=== PATIENT | female | born 1995 | race Caucasian/White ===

== ENCOUNTER → 2020-01-02 10:25 | Outpatient (CLI) | payer OTHER, SELFPAY | PROVIDERS: Visit Provider Family Medicine | DX: Z03.818 Encounter for observation for suspected exposure to other biological agents ruled out (principal); Z11.59 Encounter for screening for other viral diseases | CPT/HCPCS: 36415; 86769 ==

== ENCOUNTER → 2020-05-15 16:04 | Outpatient (CLI) | payer OTHER, SELFPAY ==
[2020-05-15 16:51] LABS: Basophils % 0.5 % (0.1-2.0); Eosinophils % 0.6 % (0.1-12.0); Hematocrit 42.9 % (37.0-47.0); Hemoglobin 14.4 g/dL (12.2-16.2); Lymphocytes # 2.5 K/mm3 (0.7-4.5); Mean Corpuscular HGB Conc 33.5 g/dL (31.8-35.4); Mean Corpuscular Hemoglobin 29.5 pg (27.0-31.2); Mean Platelet Volume 7.8 fl (7.4-10.4); Monocytes # 0.3 K/mm3 (0.1-1.0); Monocytes % 4.1 % (1.7-9.3); Neutrophils % 58.7 % (37.0-80.0); Platelet Count 276 K/mm3 (142-424); Red Blood Count 4.87 M/mm3 (4.20-5.40); Red Cell Distribution Width 11.5 % (11.5-17.5); White Blood Count 6.9 K/mm3 (4.8-10.8)
[2020-05-15 17:58] LABS: Strep Scrn Group A (Rapid) Negative (Negative)
[2020-05-15 18:02] LABS: Monoscreen (Rapid) Negative (Negative)
== END ==
PROVIDERS: PCP Family Medicine; Visit Provider Family Medicine
DX: Z03.818 Encounter for observation for suspected exposure to other biological agents ruled out (principal)
CPT/HCPCS: 36415; 85025; 86318; 87275; 87276; 87430; U0003

== ENCOUNTER → 2021-01-29 10:33 | Outpatient (CLI) | payer BC, SELFPAY ==
--- NOTE | 2021-01-29 10:46 | US_ITS ---
PROCEDURE: US TRANSVAGINAL CLINICAL INDICATION: PELVIC PAIN COMPARISON: No exams were available for comparison FINDINGS: UTERUS: x 4cmx 3cm with a combined endometrial thickness of 5.1mm LEFT OVARY: 3qgh1nhe9.6cm with a volume of 6.4ml. RIGHT OVARY: 3cmx 6jmg2pr with a volume of 10.2ml. Small amount of fluid in the cervix. No free fluid in the posterior cul-de-sac or pelvis. Normal vascular flow to both ovaries. No discrete cyst or solid mass in either ovary. A few small follicular type cysts on both ovaries. IMPRESSION: Small amount of fluid in the cervix. Otherwise unremarkable transvaginal ultrasound. Dictated by: Dale Scott MD 01/29/2021 16:09 Dale Scott MD in OV 01/29/2021 16:09
== END ==
PROVIDERS: PCP Physician Assistant; Visit Provider Physician Assistant
DX: R10.2 Pelvic and perineal pain (principal)
CPT/HCPCS: 76830

== ENCOUNTER → 2021-01-30 17:00 | Outpatient (CLI) | payer BC, SELFPAY ==
[2021-01-30 18:24] LABS: Basophils % 0.5 % (0.1-2.0); Eosinophils # 0.1 K/mm3 (0.0-0.4); Eosinophils % 1.4 % (0.1-12.0); Hematocrit 38.9 % (37.0-47.0); Hemoglobin 13.8 g/dL (12.2-16.2); Lymphocytes # 2.4 K/mm3 (0.7-4.5); Mean Corpuscular HGB Conc 35.6 g/dL (31.8-35.4); Mean Corpuscular Hemoglobin 29.9 pg (27.0-31.2); Mean Platelet Volume 7.8 fl (7.4-10.4); Monocytes # 0.3 K/mm3 (0.1-1.0); Monocytes % 4.7 % (1.7-9.3); Neutrophils # 4.3 K/mm3 (1.8-7.8); Neutrophils % 60.5 % (37.0-80.0); Platelet Count 269 K/mm3 (142-424); Red Blood Count 4.63 M/mm3 (4.20-5.40); Red Cell Distribution Width 12.6 % (11.5-17.5); White Blood Count 7.2 K/mm3 (4.8-10.8)
[2021-01-30 18:51] LABS: 25-OH Vitamin D, Total 61.8 ng/mL (30-100)
[2021-01-30 19:10] LABS: Erythrocyte Sedimentation Rate 14 mm/hr (0-20)
[2021-01-30 19:38] LABS: Chloride 103 mmol/L (98-107); Potassium 4.8 mmoL/L (3.5-5.1); Sodium 141 mmol/L (136-145)
[2021-01-30 19:40] LABS: Blood Urea Nitrogen 11 mg/dl (7-17); Estimated Glomerular Filt Rate 77 ml/min (>60); GFR (African American) 93 ML/MIN (>60)
[2021-01-30 19:41] LABS: Alanine Aminotransferase 18 U/L (12-78); Albumin Level 4.6 g/dl (3.5-5.0); Albumin/Globulin Ratio 1.6 (1.1-1.8); Alkaline Phosphatase 62 U/L (38-126); Anion Gap 14.8 mEq/L (5-15); Aspartate Amino Transferase 31 U/L (14-36); Bilirubin,Total 0.4 mg/dl (0.2-1.3); Carbon Dioxide 28 mmol/L (22.0-30.0); Globulin 2.8 g/dL (1.3-3.2); Total Protein,Serum 7.4 g/dl (6.3-8.2)
[2021-01-30 19:42] LABS: Calcium 9.5 mg/dl (8.4-10.2); Glucose 97 mg/dl (74-100)
[2021-01-30 19:47] LABS: C-Reactive Protein 2.8 mg/L (0-4)
[2021-01-30 20:12] LABS: Thyroid Stimulating Hormone 1.12 uIU/mL (0.465-4.68)
[2021-01-30 21:24] LABS: Vitamin B12 347 pg/mL (239-931)
[2021-02-01 07:09] LABS: RA Latex Turbid. <10.0 IU/mL (0.0-13.9)
[2021-02-04 10:09] LABS: Antinuclear Antibodies, IFA Positive (.)
== END ==
PROVIDERS: Visit Provider Physician Assistant
DX: M25.50 Pain in unspecified joint (principal); R53.83 Other fatigue; L65.9 Nonscarring hair loss, unspecified
CPT/HCPCS: 36415; 80053; 82306; 82607; 84443; 84550; 85025; 85651; 86038; 86140; 86431

== ENCOUNTER → 2021-03-29 13:13 | Outpatient (CLI) | payer BC, SELFPAY ==
[2021-03-29 14:09] LABS: Strep Scrn Group A (Rapid) Negative (Negative)
[2021-03-29 14:19] LABS: Basophils # 0.1 K/mm3 (0-0.2); Basophils % 0.8 % (0.1-2.0); Eosinophils # 0.1 K/mm3 (0.0-0.4); Eosinophils % 0.6 % (0.1-12.0); Hematocrit 39.5 % (37.0-47.0); Hemoglobin 13.7 g/dL (12.2-16.2); Lymphocytes # 2.3 K/mm3 (0.7-4.5); Lymphocytes % 29.1 % (10-50); Mean Corpuscular HGB Conc 34.7 g/dL (31.8-35.4); Mean Corpuscular Hemoglobin 29.7 pg (27.0-31.2); Mean Corpuscular Volume 85.7 fl (81-99); Mean Platelet Volume 7.9 fl (7.4-10.4); Monocytes # 0.3 K/mm3 (0.1-1.0); Monocytes % 3.3 % (1.7-9.3); Neutrophils # 5.1 K/mm3 (1.8-7.8); Neutrophils % 66.2 % (37.0-80.0); Platelet Count 297 K/mm3 (142-424); Red Blood Count 4.61 M/mm3 (4.20-5.40); Red Cell Distribution Width 12.4 % (11.5-17.5); White Blood Count 7.8 K/mm3 (4.8-10.8)
== END ==
PROVIDERS: PCP Physician Assistant; Visit Provider Physician Assistant
DX: Z20.822 Contact with and (suspected) exposure to COVID-19 (principal); J02.9 Acute pharyngitis, unspecified
CPT/HCPCS: 36415; 85025; 87430; U0003

== ENCOUNTER → 2021-05-30 13:12 | Outpatient (CLI) | payer BC, SELFPAY | PROVIDERS: PCP Physician Assistant; Visit Provider Nurse Practitioner | DX: Z20.822 Contact with and (suspected) exposure to COVID-19 (principal) | CPT/HCPCS: C9803; U0003; U0005 ==

== ENCOUNTER → 2021-08-07 15:00 | Outpatient (CLI) | payer BC, SELFPAY ==
[2021-08-07 17:16] LABS: Basophils # 0.1 K/mm3 (0-0.2); Basophils % 1.6 % (0.1-2.0); Eosinophils # 0.1 K/mm3 (0.0-0.4); Eosinophils % 0.9 % (0.1-12.0); Hematocrit 43.4 % (37.0-47.0); Hemoglobin 14.2 g/dL (12.2-16.2); Lymphocytes # 1.7 K/mm3 (0.7-4.5); Lymphocytes % 28.4 % (10-50); Mean Corpuscular HGB Conc 32.6 g/dL (31.8-35.4); Mean Corpuscular Hemoglobin 29.7 pg (27.0-31.2); Mean Platelet Volume 9.7 fl (7.4-10.4); Monocytes # 0.3 K/mm3 (0.1-1.0); Monocytes % 4.3 % (1.7-9.3); Neutrophils # 3.9 K/mm3 (1.8-7.8); Neutrophils % 64.8 % (37.0-80.0); Platelet Count 297 K/mm3 (142-424); Red Blood Count 4.78 M/mm3 (4.20-5.40); Red Cell Distribution Width 12.4 % (11.5-17.5); White Blood Count 5.9 K/mm3 (4.8-10.8)
[2021-08-09 08:29] LABS: Antistreptolysin O Ab 50.2 IU/mL (0.0-200.0)
== END ==
PROVIDERS: PCP Physician Assistant; Visit Provider Family Medicine
DX: Z20.822 Contact with and (suspected) exposure to COVID-19 (principal)
CPT/HCPCS: 36415; 85025; 86060

== ENCOUNTER → 2021-08-07 19:15 | Outpatient (CLI) | payer BC, SELFPAY | PROVIDERS: Visit Provider Nurse Practitioner Family | DX: Z20.822 Contact with and (suspected) exposure to COVID-19 (principal); J02.9 Acute pharyngitis, unspecified | CPT/HCPCS: C9803; U0003; U0005 ==

== ENCOUNTER → 2022-05-15 14:08 | Outpatient (CLI) | payer OTHER, SELFPAY ==
[2022-05-15 14:39] LABS: Strep Scrn Group A (Rapid) Negative (Negative)
[2022-05-15 14:55] LABS: Basophils % 0.3 % (0.1-2.0); Eosinophils # 0.1 K/mm3 (0.0-0.4); Hematocrit 44.1 % (37.0-47.0); Hemoglobin 13.9 g/dL (12.2-16.2); Lymphocytes # 2.1 K/mm3 (0.7-4.5); Lymphocytes % 35.1 % (10-50); Mean Corpuscular HGB Conc 31.6 g/dL (31.8-35.4); Mean Corpuscular Hemoglobin 28.5 pg (27.0-31.2); Mean Corpuscular Volume 90.1 fl (81-99); Mean Platelet Volume 7.7 fl (7.4-10.4); Monocytes # 0.3 K/mm3 (0.1-1.0); Neutrophils # 3.5 K/mm3 (1.8-7.8); Neutrophils % 58.6 % (37.0-80.0); Platelet Count 301 K/mm3 (142-424); Red Blood Count 4.89 M/mm3 (4.20-5.40); Red Cell Distribution Width 11.7 % (11.5-17.5)
== END ==
PROVIDERS: PCP Physician Assistant; Visit Provider Physician Assistant
DX: J02.9 Acute pharyngitis, unspecified (principal)
CPT/HCPCS: 36415; 85025; 87430

== ENCOUNTER → 2022-06-20 17:46 | Outpatient (CLI) | payer OTHER, SELFPAY ==
[2022-06-20 18:58] LABS: Basophils # 0.1 K/mm3 (0-0.2); Basophils % 1.5 % (0.1-2.0); Eosinophils # 0.1 K/mm3 (0.0-0.4); Eosinophils % 1.4 % (0.1-12.0); Hematocrit 43.1 % (37.0-47.0); Hemoglobin 14.4 g/dL (12.2-16.2); Lymphocytes # 2.3 K/mm3 (0.7-4.5); Mean Corpuscular HGB Conc 33.5 g/dL (31.8-35.4); Mean Corpuscular Hemoglobin 29.9 pg (27.0-31.2); Mean Corpuscular Volume 89.4 fl (81-99); Mean Platelet Volume 8.1 fl (7.4-10.4); Monocytes # 0.3 K/mm3 (0.1-1.0); Monocytes % 5.5 % (1.7-9.3); Neutrophils # 2.4 K/mm3 (1.8-7.8); Neutrophils % 46.6 % (37.0-80.0); Platelet Count 307 K/mm3 (142-424); Red Blood Count 4.82 M/mm3 (4.20-5.40); Red Cell Distribution Width 12.6 % (11.5-17.5); White Blood Count 5.2 K/mm3 (4.8-10.8)
[2022-06-20 19:10] LABS: Strep Scrn Group A (Rapid) Negative (Negative)
== END ==
PROVIDERS: PCP Physician Assistant; Visit Provider Family Medicine
DX: Z20.822 Contact with and (suspected) exposure to COVID-19 (principal)
CPT/HCPCS: 36415; 85025; 87275; 87276; 87430

== ENCOUNTER → 2022-08-18 13:21 | Outpatient (CLI) | payer OTHER, SELFPAY ==
--- NOTE | 2022-08-18 13:35 | ECG_ITS ---
APPROVED REPORT Exam: Resting ECG HR:78 bpm ECG Measurements Heart Rate 78 AXES HI 147 P 70 QRSd 78 QRS 82 QT 349 T 69 QTc 382 Conclusion SINUS RHYTHM WITH SINUS ARRHYTHMIA POSSIBLE LEFT ATRIAL ENLARGEMENT [-0.1mV P-WAVE IN V1/V2] BORDERLINE ECG UNCONFIRMED REPORT Electronically signed by : Alex Lomas MD 08/19/2022 16:58:36
[2022-08-18 14:53] LABS: Benzodiazepines Screen,Urine Negative ng/ml (<200)
[2022-08-18 14:54] LABS: Amphetamine/Metha Screen,Urine Negative ng/ml (<1000); Barbiturates Screen,Urine Negative ng/ml (<200)
[2022-08-18 14:55] LABS: Cannabinoid Screen,Urine Negative ng/ml (<50); Cocaine Screen,Urine Negative ng/ml (<300)
[2022-08-18 14:56] LABS: Methadone Screen,Urine Negative ng/ml (<300)
[2022-08-18 14:57] LABS: Opiate Screen,Urine Negative ng/ml (<300); Phencyclidine Screen,Urine Negative ng/ml (<25)
== END ==
PROVIDERS: PCP Physician Assistant; Visit Provider Nurse Practitioner Psychiatric/Mental Health
DX: F90.2 Attention-deficit hyperactivity disorder, combined type (principal)
CPT/HCPCS: 36415; 80305; 93005

== ENCOUNTER 2022-09-14 17:09 | Emergency (ER) | payer OTHER, SELFPAY ==
[2022-09-14 17:15] VITALS: BP 123/69; PULSE 76; RESP 20; TEMP 37.1; O2SAT 97; BMI 26.5
--- NOTE | 2022-09-14 17:21 | EXP.UTC ---
Discharge Plan Disposition Patient Disposition: Home, Self-Care Condition: Good Prescriptions Prescriptions: New amoxicillin [amoxicillin] 500 mg tablet 500 mg PO TID 10 Days Qty: 30 0RF methylprednisolone 4 mg Tablets,Dose Pack 4 mg PO DIRECTED Qty: 21 0RF No Action hydroxychloroquine 200 mg tablet 200 mg PO DAILY Label Comments: TAKE 1 TABLET BY MOUTH EVERY DAY sertraline 50 mg tablet 50 mg PO DAILY bupropion HCl 150 mg tablet extended release 24 hr 150 mg PO DAILY Label Comments: TAKE 1 TABLET BY MOUTH EVERY DAY Referrals Follow up/Referrals: Adia Carlisle PA [Primary Care Provider] - See instructions Activity Restrictions/Add. Instructions Additional Instructions/Restrictions: Drink plenty of fluids. Take tylenol or ibuprofen for pain or fever. Take the medications as directed. Follow up with your regular doctor. GO TO THE ER FOR ANY WORSENING SYMPTOMS Clinical Impressions Clinical Impression: Pharyngitis Stand Alone Forms Stand Alone Forms: Work/School Release Instructions Patient Instructions: Strep Throat, DI for Strep Throat Discharge ED Provider: Dale Marie [facility] General Stated complaint: Possible strep throat, would like to be tested Time Seen by Provider: 09/14/22 17:21 History of Present Illness Provider Complaint: She states that she has had a sore throat for the past 3 days. She has had chills but no documented fever. She does have a history of Sjogren's Syndrome. Related Data Home Medications Medication Instructions Recorded Confirmed bupropion HCl 150 mg 24 hr tablet, 150 mg PO DAILY Depression 09/14/22 09/14/22 extended release hydroxychloroquine 200 mg tablet 200 mg PO DAILY sjogrens 09/14/22 09/14/22 sertraline 50 mg tablet 50 mg PO DAILY Depression 09/14/22 09/14/22 Previous Rx's Medication Instructions Recorded amoxicillin 500 mg tablet 500 mg PO TID 10 days #30 tabs 09/14/22 methylprednisolone 4 mg tablets in 4 mg PO DIRECTED #21 tabs 09/14/22 a dose pack Allergies Allergy/AdvReac Type Severity Reaction Status Date / Time No Known Allergies Allergy Verified 09/14/22 17:27 [facility] Disclaimer: The information contained in this section may have been updated after the patient was seen, as this information can be updated by other users. Social History Smoking Status: Never smoker alcohol intake: current substance use type: denies use current occupational status: employed Travel in the last 8 weeks: None household members: family housing: house ROS Obtained: Yes All systems reviewed & no additional complaints except as documented Constitutional Constitutional: Reports chills and Reports fever(s) Eyes Eyes: Denies eye discharge ENT Ears, Nose, Mouth, and Throat: Reports as per HPI Cardiovascular Cardiovascular: Denies chest pain Respiratory Respiratory: Denies chest congestion and Reports cough Gastrointestinal Gastrointestingal: Reports nausea; Denies abdominal pain, constipation, cramping, diarrhea or vomiting Musculoskeletal Musculoskeletal: Denies arthralgias Integumentary/Breasts Skin/Breast: Denies rash Neurologic Neurologic: Denies paresthesias Physical Exam General General appearance: alert and in no apparent distress Head Head exam: atraumatic, normocephalic and normal inspection Eye Eye exam: Present normal appearance, PERRL and EOMI ENT ENT exam: Present mucous membranes moist and normal external ear exam Expanded ENT Exam TM/Canal exam: Bilateral TM: erythema and bulging Nose exam: Absent sinus tenderness Mouth exam: Present normal external inspection; Absent drooling Teeth exam: Present normal inspection Throat exam: Present tonsillar erythema, tonsillomegaly and tonsillar exudate Neck Neck exam: Present normal inspection, full ROM and trachea midline; Absent tenderness, meningismus or lym
[2022-09-14 17:32] LABS: UTC Strep Screen (Rapid) Negative (Negative)
[2022-09-14 18:11] VITALS: BP 123/69; PULSE 76; RESP 20; TEMP 37.1; O2SAT 97
== END 2022-09-14 18:10 | disposition home or self-care (01) ==
PROVIDERS: Emergency Provider Nurse Practitioner Family; PCP Physician Assistant
DX: J02.9 Acute pharyngitis, unspecified (principal)
CPT/HCPCS: 87880; 99212; G0463

== ENCOUNTER → 2022-12-18 15:26 | Outpatient (CLI) | payer OTHER, SELFPAY | PROVIDERS: PCP Physician Assistant; Visit Provider Physician Assistant | DX: R00.2 Palpitations (principal) | CPT/HCPCS: 93225; 93226 ==

== ENCOUNTER 2023-01-19 09:49 | Emergency (ER) | payer OTHER, SELFPAY ==
[2023-01-19 09:55] VITALS: BP 121/76; PULSE 76; RESP 18; TEMP 37; O2SAT 100; BMI 30.1
--- NOTE | 2023-01-19 10:21 | EXP.UTC ---
Discharge Plan Disposition Patient Disposition: Home, Self-Care Condition: Good Prescriptions Prescriptions: New valacyclovir 1 gram tablet 2,000 mg PO Q12H 1 Days Qty: 4 0RF No Action hydroxychloroquine 200 mg tablet 200 mg PO DAILY Label Comments: TAKE 1 TABLET BY MOUTH EVERY DAY sertraline 50 mg tablet 50 mg PO DAILY Referrals Follow up/Referrals: Adia Carlisle PA [Primary Care Provider] - See instructions Activity Restrictions/Add. Instructions Additional Instructions/Restrictions: Take medication as prescribed Use over the counter Abreva it may help to clear the cold sore Return if needed Follow up with yout Family Doctor if you continue to have outbreaks Clinical Impressions Clinical Impression: Fever blister Instructions Patient Instructions: Cold Sores, DI for Cold Sores, Valacyclovir Discharge ED Provider: Laura Sommer [facility] General Stated complaint: Possible fever blisters Mode of Arrival: Ambulatory Source of Information: Patient Limitations: No Limitations Time Seen by Provider: 01/19/23 10:21 Description of Symptoms (Recalled from Triage Doc. by RN): PATIENT C/O FEVER BLISTERS TO MOUTH SINCE YESTERDAY HEENT Symptoms (Recalled from RN notes): Yes Resp Symptoms (Recalled from RN notes): No Skin Symptoms (Recalled from RN notes): No MS Symptoms (Recalled from RN notes): No Functional Status (Recalled from RN notes): WNL History of Present Illness Provider Complaint: Patient states that she has been having issues with breakout of fever blisters States that a couple weeks ago she had two and then yesterday she had seven small blisters pop up on her bottom lip that is causing pain and swelling States before she done this and had to take oral medication for it and worried they are going to continue to spread so she came in to get them checked Related Data Home Medications Medication Instructions Recorded Confirmed hydroxychloroquine 200 mg tablet 200 mg PO DAILY Sjogrens 09/14/22 01/19/23 sertraline 50 mg tablet 50 mg PO DAILY Depression 09/14/22 01/19/23 Previous Rx's Medication Instructions Recorded valacyclovir 1 gram tablet 2,000 mg PO Q12H 1 day #4 tabs 01/19/23 Allergies Allergy/AdvReac Type Severity Reaction Status Date / Time No Known Allergies Allergy Verified 09/14/22 17:27 Worker's Comp Is this a Worker's Comp case?: No PFSH PFSH Disclaimer: The information contained in this section may have been updated after the patient was seen, as this information can be updated by other users. Social History Smoking Status: Never smoker alcohol intake: current substance use type: denies use current occupational status: employed Travel in the last 8 weeks: None household members: family housing: house ROS Obtained: Yes All systems reviewed & no additional complaints except as documented and Yes Systems reviewed as appropriate & no additional complaints except as documented Constitutional Constitutional: Reports system reviewed and no additional complaints, except as documented and Reports as per HPI Eyes Eyes: Reports system reviewed and no additional complaints, except as documented and Reports as per HPI ENT Ears, Nose, Mouth, and Throat: Reports system reviewed and no additional complaints, except as documented and Reports as per HPI Comments: multiple cold sores on bottom lip causing pain and swelling Cardiovascular Cardiovascular: Reports system reviewed and no additional complaints, except as documented and Reports as per HPI Respiratory Respiratory: Reports system reviewed and no additional complaints, except as documented and Reports as per HPI Gastrointestinal Gastrointestingal: Reports system reviewed and no additional complaints, except as documented and as per HPI Physical Exam General General appearance: alert and in no apparent distress Expanded ENT Exam Nose/M
[2023-01-19 10:24] VITALS: BP 121/76; PULSE 76; RESP 18; TEMP 37; O2SAT 100
== END 2023-01-19 10:26 | disposition home or self-care (01) ==
PROVIDERS: Emergency Provider Nurse Practitioner; PCP Physician Assistant
DX: B00.1 Herpesviral vesicular dermatitis (principal)
CPT/HCPCS: 99212; 99214; G0463

== ENCOUNTER → 2023-02-19 15:54 | Outpatient (CLI) | payer OTHER, SELFPAY ==
[2023-02-19 16:33] LABS: Basophils % 0.3 % (0.1-2.0); Eosinophils # 0.1 K/mm3 (0.0-0.4); Eosinophils % 1.5 % (0.1-12.0); Hematocrit 42.5 % (37.0-47.0); Lymphocytes # 2.1 K/mm3 (0.7-4.5); Lymphocytes % 34.4 % (10-50); Mean Corpuscular Hemoglobin 28.7 pg (27.0-31.2); Mean Corpuscular Volume 86.9 fl (81-99); Mean Platelet Volume 8.1 fl (7.4-10.4); Monocytes # 0.2 K/mm3 (0.1-1.0); Monocytes % 3.5 % (1.7-9.3); Neutrophils # 3.7 K/mm3 (1.8-7.8); Neutrophils % 60.3 % (37.0-80.0); Platelet Count 304 K/mm3 (142-424); Red Blood Count 4.89 M/mm3 (4.20-5.40); Red Cell Distribution Width 12.4 % (11.5-17.5); White Blood Count 6.1 K/mm3 (4.8-10.8)
[2023-02-19 16:59] LABS: Alanine Aminotransferase 20 U/L (12-78); Albumin Level 4.2 g/dl (3.5-5.0); Alkaline Phosphatase 64 U/L (38-126); Anion Gap 11.2 mEq/L (5-15); Aspartate Amino Transferase 30 U/L (14-36); Bilirubin,Indirect 0.3 mg/dL (0.0-0.9); Bilirubin,Total 0.3 mg/dl (0.2-1.3); Bilirubin,Unconjugated 0.5 mg/dL (0.0-1.1); Blood Urea Nitrogen 8 mg/dl (7-17); Calcium 9.1 mg/dl (8.4-10.2); Carbon Dioxide 26 mmol/L (22.0-30.0); Chloride 106 mmol/L (98-107); Chol/HDL Ratio 2.7 (1-3.5); Cholesterol 214 mg/dl (140-200); Estimated Glomerular Filt Rate 87 ml/min (>60); GFR (African American) 105 ML/MIN (>60); Glucose 81 mg/dl (74-100); HDL Cholesterol 78 mg/dl (40-60); Potassium 4.2 mmoL/L (3.5-5.1); Sodium 139 mmol/L (136-145); Total Protein,Serum 7.2 g/dl (6.3-8.2); Triglycerides 173 mg/dl (30-150); VLDL Cholesterol 35 mg/dL (0-40)
[2023-02-19 17:10] LABS: Direct LDL Cholesterol 117.14 mg/dL (100-129)
[2023-02-19 17:29] LABS: Thyroid Stimulating Hormone 1.27 uIU/mL (0.465-4.68)
== END ==
PROVIDERS: PCP Physician Assistant; Visit Provider Nurse Practitioner
DX: R06.00 Dyspnea, unspecified (principal); R00.0 Tachycardia, unspecified; R55 Syncope and collapse; G90.A Postural orthostatic tachycardia syndrome [POTS]; I11.9 Hypertensive heart disease without heart failure; I63.9 Cerebral infarction, unspecified; E11.9 Type 2 diabetes mellitus without complications
CPT/HCPCS: 36415; 80048; 80061; 80076; 84439; 84443; 85025; 93270

== ENCOUNTER → 2023-02-25 12:13 | Outpatient (CLI) | payer OTHER, SELFPAY ==
--- NOTE | 2023-02-25 12:17 | CT_ITS ---
FINAL REPORT CLINICAL HISTORY: syncope, tachycardia FINDINGS: Thin section axial CT images of the chest were obtained with contrast. 3D reformatted images were also obtained. This study was performed with techniques to keep radiation doses as low as reasonably achievable (ALARA). Individualized dose reduction techniques using automated exposure control or adjustment of mA and/or kV according to the patient's size were employed. There is no evidence of pulmonary embolism. There is no evidence of thoracic aortic aneurysm or dissection. There is no evidence of mediastinal or hilar mass or adenopathy. There is no evidence of pulmonary mass or nodule. No localized inflammatory process is seen within the lungs. There are several calcified granulomas. Limited images of the upper abdomen are unremarkable. IMPRESSION: No evidence of pulmonary embolism. No mass or localized inflammatory process. Reviewed, Interpreted and Dictated by Dontae Tomlin III, MD Transcribed by Idania Cruz Authenticated and [facility]
== END ==
PROVIDERS: PCP Physician Assistant; Visit Provider Nurse Practitioner
DX: R55 Syncope and collapse (principal); R00.0 Tachycardia, unspecified; G90.A Postural orthostatic tachycardia syndrome [POTS]
CPT/HCPCS: 71275; Q9967

== ENCOUNTER → 2023-03-17 15:04 | Outpatient (CLI) | payer OTHER, SELFPAY ==
--- NOTE | 2023-03-17 15:07 | CA_ITS ---
APPROVED REPORT EXAM: Comprehensive 2D, Doppler, and color-flow Echocardiogram Repairer [employer]: Marianna Li, RCS, RVS Ht: 5 ft 8 in Wt: 196lbs BSA: 2.03 HR: 70 bpm BP: 121/77 mmHg Rhythm: NSR Indications: POTS, Syncope, tachycardia 2D Dimensions Aortic Root 2.77 cm LA Volume 39.90 mL Left Atrium 2.70 cm LA Volume Index 19.20 mL/m2 (M/F) 16-34 LVOT 1.87 cm (M/F) 1.5-2.5 M-Mode Dimensions RVDd 2.75 cm (0.9-2.6) LA Diam 2.83 cm (1.9-4.0) LVDd 4.26 cm (3.5-5.7) Ao Diam 2.89 cm (2.0-3.7) LVDs 2.57 cm (3.5-5.7) IVSd 0.75 cm (0.6-1.1) PWd 0.69 cm (0.6-1.1) EF (Teich) 70.60% EPSs 0.31 cm FS 39.70% EDV (Teich) 81.30 mL ESV (Teich) 23.90 mL LV Diastology E Decel Time 170.00 (160-240 msec) E/A Ratio 1.71 MED E' 10.60 (< 7 cm/sec) MED A' 10.40 cm/s E'/MED E' Ratio 8.02 (>14) LAT E' 17.60 (<10 cm/sec) LAT A' 12.10 cm/s E/LAT E' Ratio 4.83 (>14) Aortic Valve LVOT Max 113.00 (70-110 cm/s) LVOT VTI 23.14 cm AoV Peak Kristofer. 129.00 (50-130 cm/s) AO Peak GR. 6.70 mmHg AO Mean GR. 3.30 (<5 mmHg) AO VTI 24.77 (18-25 cm) VALENCIA (VTI) 2.57 (2.5-4.5 cm2) Mitral Valve MV A Velocity 50.00 (40-130 cm/s) E/A Ratio 1.71 MV Decel. Time 170.00 (160-240 ms) Pulmonary Valve PV Peak Velocity 104.00 (50-150 cm/s) ME End VMAX 171.00 cm/s Tricuspid Valve TR P. Velocity 188.00 cm/s Left Ventricle The left ventricle is normal size. The left ventricular systolic function is normal. The left ventricular ejection fraction is within the normal range. There is normal left ventricular wall thickness. There is normal LV segmental wall motion. The left ventricular diastolic function is normal. LVEF is 60%. Right Ventricle The right ventricle is normal size. The right ventricular systolic function is normal. Atria The left atrium size is normal. The right atrium size is normal. There is no Doppler evidence of interatrial shunt. Aortic Valve The aortic valve is normal in structure. The aortic valve opens well. There is no aortic valvular stenosis. No aortic regurgitation is present. Mitral Valve The mitral valve is normal in structure. There is no mitral valve regurgitation noted. Tricuspid Valve The tricuspid valve leaflets are thin and pliable. Trace tricuspid regurgitation. RVSP is normal. Pulmonic Valve The pulmonary valve is normal in structure. Mild pulmonic regurgitation. Great Vessels The aortic root is normal in size. The visualized segment of the ascending aorta is normal in size. IVC is normal in size and collapses >50% with inspiration. Pericardium There is no pericardial effusion. Other Information Study Quality: Adequate Conclusion Ventricular systolic function. No significant valvulopathy. Electronically signed by : Ana Rosa Aviles, 03/17/2023 22:06:56
== END ==
PROVIDERS: PCP Physician Assistant; Visit Provider Nurse Practitioner
DX: R55 Syncope and collapse (principal); R00.0 Tachycardia, unspecified; G90.A Postural orthostatic tachycardia syndrome [POTS]
CPT/HCPCS: 93306

== ENCOUNTER 2023-04-02 10:55 | Emergency (ER) | payer OTHER, SELFPAY ==
[2023-04-02 10:55] VITALS: BP 123/75; PULSE 68; RESP 18; TEMP 37; O2SAT 97; BMI 28.7
--- NOTE | 2023-04-02 11:12 | EXP.UTC ---
Discharge Plan Disposition Patient Disposition: Home, Self-Care Condition: Good Prescriptions Prescriptions: New prednisone 10 mg tablet 10 mg PO BID 4 Days Qty: 8 0RF amoxicillin [amoxicillin] 875 mg tablet 875 mg PO Q12H Qty: 20 0RF ssdkfqwmtlaifmw-uirsjgtij-HD [Bromfed DM] 2-30-10 mg/5 mL Syrup 5 ml PO Q6H PRN (Reason: Cough) Qty: 240 0RF No Action etonogestrel-ethinyl estradiol 0.12-0.015 mg/24 hr ring vaginal bisoprolol fumarate 5 mg tablet 5 mg PO DAILY Qty: 30 2RF hydroxychloroquine 200 mg tablet 200 mg PO DAILY Patient Comments: TAKE 1 TABLET BY MOUTH EVERY DAY sertraline 50 mg tablet 50 mg PO DAILY Referrals Follow up/Referrals: Adia Carlisle PA [Primary Care Provider] - See instructions Activity Restrictions/Add. Instructions Additional Instructions/Restrictions: Drink plenty of fluids. Take tylenol or ibuprofen for pain or fever. Take the medications as directed. Follow up with your regular doctor. GO TO THE ER FOR ANY WORSENING SYMPTOMS Clinical Impressions Clinical Impression: Pharyngitis Instructions Patient Instructions: DI for Pharyngitis/Tonsillopharyngitis -- Adult Discharge ED Provider: Dale Marie [facility] General Stated complaint: sore throat, fever Mode of Arrival: Ambulatory Source of Information: Patient Limitations: No Limitations Time Seen by Provider: 04/02/23 11:12 Description of Symptoms (Recalled from Triage Doc. by RN): Patient states she has a sore throat and fever for two days. HEENT Symptoms (Recalled from RN notes): Yes Resp Symptoms (Recalled from RN notes): No Skin Symptoms (Recalled from RN notes): No MS Symptoms (Recalled from RN notes): No Functional Status (Recalled from RN notes): wnl History of Present Illness Provider Complaint: She states that she has had fever, malaise and sore throat for the past 3 days. She states that she gets strep throat frequently and she thinks that is what's going on now. She has a cough, but denies any chest congestion or shortness of breath. She denies any known exposure to covid-19. Related Data Home Medications Medication Instructions Recorded Confirmed hydroxychloroquine 200 mg tablet 200 mg PO DAILY Sjogrens 09/14/22 02/19/23 sertraline 50 mg tablet 50 mg PO DAILY Depression 09/14/22 02/19/23 etonogestrel 0.12 mg-ethinyl vag ring vaginal 02/19/23 02/19/23 estradiol 0.015 mg/24 hr vaginal ring Previous Rx's Medication Instructions Recorded bisoprolol fumarate 5 mg tablet 5 mg PO DAILY #30 tabs 02/19/23 amoxicillin 875 mg tablet 875 mg PO Q12H #20 tabs 04/02/23 ycfjdkrsdrepczr-eleipeebiexfulm-FP 5 ml PO Q6H PRN Cough #240 mL 04/02/23 2 mg-30 mg-10 mg/5 mL oral syrup (Bromfed DM) prednisone 10 mg tablet 10 mg PO BID 4 days #8 tabs 04/02/23 Allergies Allergy/AdvReac Type Severity Reaction Status Date / Time No Known Allergies Allergy Verified 02/19/23 15:13 Worker's Comp Is this a Worker's Comp case?: No PFSH [facility] Disclaimer: The information contained in this section may have been updated after the patient was seen, as this information can be updated by other users. Social History Smoking Status: Never smoker alcohol intake: current substance use type: denies use current occupational status: employed Travel in the last 8 weeks: None household members: family housing: house ROS Obtained: Yes All systems reviewed & no additional complaints except as documented Constitutional Constitutional: Reports chills and Reports fever(s) Eyes Eyes: Denies eye discharge ENT Ears, Nose, Mouth, and Throat: Reports as per HPI Cardiovascular Cardiovascular: Denies chest pain Respiratory Respiratory: Denies chest congestion and Reports cough Gastrointestinal Gastrointestingal: Reports nausea; Denies abdominal pain, constipation, cramping, diarrhea or vomiting Musculoskelet
[2023-04-02 11:14] LABS: UTC Strep Screen (Rapid) Negative (Negative)
[2023-04-02 12:01] VITALS: BP 123/75; PULSE 68; RESP 18; TEMP 37; O2SAT 97
== END 2023-04-02 12:03 | disposition home or self-care (01) ==
PROVIDERS: Emergency Provider Nurse Practitioner Family; PCP Physician Assistant
DX: J02.9 Acute pharyngitis, unspecified (principal); R50.9 Fever, unspecified; R53.81 Other malaise
CPT/HCPCS: 87880; 99212; 99214; G0463

== ENCOUNTER 2024-03-02 12:55 | Emergency (ER) | payer BC, SELFPAY ==
[2024-03-02 13:00] VITALS: BP 129/77; PULSE 58; RESP 20; TEMP 36.7; O2SAT 98; BMI 30.2
[2024-03-02 13:18] LABS: UTC Strep Screen (Rapid) Negative (Negative)
--- NOTE | 2024-03-02 13:29 | ED_ITS ---
Discharge Plan Disposition Patient Disposition: Home, Self-Care Condition: Good Prescriptions Prescriptions: New azithromycin [Zithromax] 250 mg tablet 250 mg PO UD DOSE PK Qty: 6 0RF Rx Instructions: Take two (2) tablets today, then one (1) tablet days #2 thru #5 ziripkqsiupctzp-jkrvutmpn-OM [Bromfed DM] 2-30-10 mg/5 mL Syrup 5 ml PO Q6H PRN (Reason: Cough) Qty: 240 0RF No Action bisoprolol fumarate 5 mg tablet 2.5 mg PO DAILY Qty: 30 2RF hydroxychloroquine 200 mg tablet 200 mg PO DAILY Patient Comments: TAKE 1 TABLET BY MOUTH EVERY DAY dextroamphetamine-amphetamine 10 mg tablet 10 mg PO DAILY Referrals Follow up/Referrals: Adia Carlisle PA [Primary Care Provider] - See instructions Activity Restrictions/Add. Instructions Additional Instructions/Restrictions: Drink plenty of fluids. Take tylenol or ibuprofen for pain or fever. Take the medications as directed. Follow up with your regular doctor. GO TO THE ER FOR ANY WORSENING SYMPTOMS Clinical Impressions Clinical Impression: Pharyngitis, Acute viral syndrome Stand Alone Forms Stand Alone Forms: Work/School Release Instructions Patient Instructions: Sore Throat, DI for Pharyngitis/Tonsillopharyngitis -- Adult Discharge ED Provider: Dale Marie [facility] General Stated complaint: strep test Mode of Arrival: Ambulatory Source of Information: Patient Limitations: No Limitations Time Seen by Provider: 03/02/24 13:28 Description of Symptoms (Recalled from Triage Doc. by RN): PATIENT C/O SORE THROAT THAT STARTED THIS MORNING HEENT Symptoms (Recalled from RN notes): Yes Resp Symptoms (Recalled from RN notes): No Skin Symptoms (Recalled from RN notes): No MS Symptoms (Recalled from RN notes): No Functional Status (Recalled from RN notes): WNL Related Data Home Medications Medication Instructions Recorded Confirmed hydroxychloroquine 200 mg tablet 200 mg PO DAILY Sjogrens 09/14/22 03/02/24 dextroamphetamine-amphetamine 10 10 mg PO DAILY 03/02/24 03/02/24 mg tablet Previous Rx's Medication Instructions Recorded bisoprolol fumarate 5 mg tablet 2.5 mg (1/2 x 5 mg) PO DAILY #30 01/29/24 tabs azithromycin 250 mg tablet 250 mg PO UD DOSE PK #6 tabs 03/02/24 (Zithromax) dokaxdajskdrcig-pejdwssbkbtzxlf-AA 5 ml PO Q6H PRN Cough #240 mL 03/02/24 2 mg-30 mg-10 mg/5 mL oral syrup (Bromfed DM) Allergies Allergy/AdvReac Type Severity Reaction Status Date / Time No Known Allergies Allergy Verified 11/02/23 15:24 Worker's Comp Is this a Worker's Comp case?: No [facility] Disclaimer: The information contained in this section may have been updated after the patient was seen, as this information can be updated by other users. Medical History (Updated 03/02/24 @ 13:49 by Dale Marie APRN) Urinary tract infection Sjogren syndrome Depression Anxiety Asthma Surgical History (Updated 03/02/24 @ 13:13 by Alison Ochoa RN) History of tonsillectomy Social History Smoking Status: Never smoker alcohol intake: current alcohol intake frequency: holidays/special occasions only substance use type: denies use current occupational status: employed Travel in the last 8 weeks: None household members: family housing: house ROS Obtained: Yes All systems reviewed & no additional complaints except as documented Constitutional Constitutional: Reports chills and Reports fever(s) Eyes Eyes: Denies eye discharge ENT Ears, Nose, Mouth, and Throat: Reports as per HPI Cardiovascular Cardiovascular: Denies chest pain Respiratory Respiratory: Denies chest congestion and Reports cough Gastrointestinal Gastrointestingal: Reports nausea; Denies abdominal pain, constipation, cramping, diarrhea or vomiting Musculoskeletal Musculoskeletal: Denies arthralgias Integumentary/Breasts Skin/Breast: Denies rash Neurologic Neurologic: Denies paresthesias Physical Exam General General appearance: alert and in no apparent distress Head Head exam: atraumatic, normocephalic and normal inspection Eye Eye exam: Present normal appearance, PERRL and EOMI ENT ENT exam: Present mucous membranes moist and normal external ear exam Expanded ENT Exam TM/Canal exam: Bilateral TM: erythema and bulging Nose exam: Absent sinus tenderness Mouth exam: Present normal external inspection; Absent drooling Teeth exam: Present normal inspection Throat exam: Present tonsillar erythema, tonsillomegaly and tonsillar exudate Neck Neck exam: Present normal inspection, full ROM and trachea midline; Absent tenderness, meningismus or lymphadenopathy Chest Chest inspection: Present normal inspection and symmetric chest wall rise; Absent tenderness Respiratory Respiratory exam: Present normal lung sounds bilaterally; Absent respiratory distress, wheezes, stridor or accessory muscle use Cardiovascular Cardiovascular exam: Present regular rate and normal rhythm; Absent systolic murmur or diastolic murmur Abdominal Exam Abdominal exam: Present soft and normal bowel sounds; Absent distention, tenderness, guarding, rebound or rigidity Extremities Exam Extremities exam: Present normal inspection and normal capillary refill; Absent calf tenderness Back Exam Back exam: Present normal inspection and full ROM; Absent tenderness, CVA tenderness (R) or CVA tenderness (L) Neurological Exam Neurological exam: Present alert, oriented X3 and CN II-XII intact Psychiatric Psychiatric exam: Present normal affect and normal mood Skin Skin exam: Present warm, dry, intact and normal color Medical Decision Making Medical Records Medical records reviewed: No I reviewed the patient's medical records. Manuel Inquiry Pt receiving controlled substance: No Vital Signs: 03/02/24 13:00 Temperature 98.0 F Temperature Source Oral Pulse Rate [Left Brachial] 58 L Respiratory Rate 20 Blood Pressure [Left Arm] 129/77 Blood Pressure Mean [Left Arm] 94 Blood Pressure Source [Left Arm] Automatic Cuff Blood Pressure Position [Left Arm] Sitting 02 Sat by Pulse Oximetry 98 Oxygen Delivery Method Room Air Lab Data Lab results reviewed: Yes I reviewed the patient's lab results. Lab Results 03/02/24 13:11: Strep Scn Rapid Clinic Negative Orders (Tests/Meds): ORDERS Category Date Time Status Strep Screen Confirmation Stat Micro 03/02/24 13:11 Received
[2024-03-02 13:50] VITALS: BP 129/77; PULSE 58; RESP 20; TEMP 36.7; O2SAT 98
== END 2024-03-02 13:54 | disposition home or self-care (01) ==
PROVIDERS: Emergency Provider Nurse Practitioner Family; PCP Physician Assistant
DX: J02.9 Acute pharyngitis, unspecified (principal); B34.9 Viral infection, unspecified
CPT/HCPCS: 87635; 87880; 99212; 99214; G0463

== ENCOUNTER 2024-06-05 11:29 | Emergency (ER) | payer BC, SELFPAY ==
[2024-06-05 11:53] VITALS: BP 114/55; PULSE 74; RESP 20; TEMP 37.2; O2SAT 96; BMI 31.0
[2024-06-05 11:59] LABS: UTC Influenza A Antigen Negative (Negative); UTC Influenza B Antigen Negative (Negative)
--- NOTE | 2024-06-05 12:04 | EXP.UTC ---
Discharge Plan Disposition Patient Disposition: Home, Self-Care Condition: Good Prescriptions Prescriptions: New amoxicillin 875 mg tablet 875 mg PO Q12H Qty: 20 0RF methylprednisolone 4 mg Tablets,Dose Pack 4 mg PO DIRECTED 6 Days Qty: 21 0RF Rx Instructions: Take 1 pack as directed for 6 days xeuymgvaogcvfxy-sokztzjat-FB [Bromfed DM] 2-30-10 mg/5 mL Syrup 5 ml PO Q6H PRN (Reason: Cough) Qty: 240 0RF Discontinued azithromycin [Zithromax] 250 mg tablet 250 mg PO UD DOSE PK Qty: 6 0RF Rx Instructions: Take two (2) tablets today, then one (1) tablet days #2 thru #5 No Action bisoprolol fumarate 5 mg tablet 2.5 mg PO DAILY Qty: 30 2RF hydroxychloroquine 200 mg tablet 200 mg PO DAILY Patient Comments: TAKE 1 TABLET BY MOUTH EVERY DAY dextroamphetamine-amphetamine 10 mg tablet 10 mg PO DAILY pzthqdascdxulhs-xtxmpzfxq-LM [Bromfed DM] 2-30-10 mg/5 mL Syrup 5 ml PO Q6H PRN (Reason: Cough) Qty: 240 0RF Referrals Follow up/Referrals: Adia Carlisle PA [Primary Care Provider] - See instructions Activity Restrictions/Add. Instructions Additional Instructions/Restrictions: Drink plenty of fluids. Take tylenol or ibuprofen for pain or fever. Take the medications as directed. Follow up with your regular doctor. GO TO THE ER FOR ANY WORSENING SYMPTOMS Clinical Impressions Clinical Impression: Pharyngitis, Otitis media Instructions Patient Instructions: Sore Throat, DI for Pharyngitis/Tonsillopharyngitis -- Adult, DI for Viral Syndrome Print Language Print Language: Latvian Discharge ED Provider: Dale Marie [facility] HPI General Stated complaint: sore throat, runny nose, body aches, chills Mode of Arrival: Ambulatory Source of Information: Patient Time Seen by Provider: 06/05/24 12:03 Description of Symptoms (Recalled from Triage Doc. by RN): COVID, FLU TEST HEENT Symptoms (Recalled from RN notes): Yes Resp Symptoms (Recalled from RN notes): Yes Skin Symptoms (Recalled from RN notes): No MS Symptoms (Recalled from RN notes): No Functional Status (Recalled from RN notes): WNL History of Present Illness Provider Complaint: She states that for the past 2 days she has had worsening sore throat, sinus congestion, productive cough, and right ear pain. Related Data Home Medications ?Medication ?Instructions ?Recorded ?Confirmed hydroxychloroquine 200 mg tablet 200 mg PO DAILY Sjogrens 09/14/22 06/05/24 dextroamphetamine-amphetamine 10 10 mg PO DAILY 03/02/24 06/05/24 mg tablet Previous Rx's ?Medication ?Instructions ?Recorded bisoprolol fumarate 5 mg tablet 2.5 mg (1/2 x 5 mg) PO DAILY #30 01/29/24 tabs cituqggeiuhluhx-glzeckjawrmkwek-NT 5 ml PO Q6H PRN Cough #240 mL 03/02/24 2 mg-30 mg-10 mg/5 mL oral syrup (Bromfed DM) amoxicillin 875 mg tablet 875 mg PO Q12H #20 tabs 06/05/24 ynwpznfzwmbsvxf-ceuvcxibbvgcuzl-AJ 5 ml PO Q6H PRN Cough #240 mL 06/05/24 2 mg-30 mg-10 mg/5 mL oral syrup (Bromfed DM) methylprednisolone 4 mg tablets in 4 mg PO DIRECTED 6 days #21 tabs 06/05/24 a dose pack Allergies Allergy/AdvReac Type Severity Reaction Status Date / Time No Known Allergies Allergy Verified 11/02/23 15:24 Worker's Comp Is this a Worker's Comp case?: No [facility] Disclaimer: The information contained in this section may have been updated after the patient was seen, as this information can be updated by other users. Medical History (Updated 06/05/24 @ 12:20 by Dale Marie APRN) Urinary tract infection Sjogren syndrome Depression Anxiety Asthma Surgical History (Updated 03/02/24 @ 13:13 by Alison Ochoa RN) History of tonsillectomy Social History Smoking Status: Never smoker alcohol intake: current alcohol intake frequency: holidays/special occasions only substance use type: denies use current occupational status: employed Travel in the last 8 weeks: None household members: family housing: house ROS Obtained: Yes All systems reviewed & no additional complaints except as documented Constitutional Constitutional: Reports chills and Reports fever(s) Eyes Eyes: Denies eye discharge ENT Ears, Nose, Mouth, and Throat: Reports as per HPI Cardiovascular Cardiovascular: Denies chest pain Respiratory Respiratory: Denies chest congestion and Reports cough Gastrointestinal Gastrointestingal: Reports nausea; Denies abdominal pain, constipation, cramping, diarrhea or vomiting Musculoskeletal Musculoskeletal: Denies arthralgias Integumentary/Breasts Skin/Breast: Denies rash Neurologic Neurologic: Denies paresthesias Physical Exam General General appearance: alert and in no apparent distress Head Head exam: atraumatic, normocephalic and normal inspection Eye Eye exam: Present normal appearance; Absent PERRL or EOMI ENT ENT exam: Present mucous membranes moist and normal external ear exam Expanded ENT Exam TM/Canal exam: Bilateral TM: erythema, bulging and effusion Nose exam: Absent sinus tenderness Nasal speculum exam: Bilateral: normal Mouth exam: Present normal external inspection and other; Absent drooling Teeth exam: Present normal inspection Throat exam: Present tonsillar erythema and tonsillomegaly Neck Neck exam: Present normal inspection, full ROM and trachea midline; Absent tenderness, meningismus or lymphadenopathy Chest Chest inspection: Present normal inspection and symmetric chest wall rise; Absent tenderness Respiratory Respiratory exam: Present normal lung sounds bilaterally; Absent respiratory distress, wheezes or stridor Cardiovascular Cardiovascular exam: Present regular rate, normal rhythm and normal heart sounds; Absent tachycardia or irregular rhythm Abdominal Exam Abdominal exam: Present soft and normal bowel sounds; Absent distention, tenderness, guarding, rebound or rigidity Extremities Exam Extremities exam: Present normal inspection and normal capillary refill; Absent tenderness, joint swelling or calf tenderness Back Exam Back exam: Present normal inspection and full ROM; Absent tenderness, CVA tenderness (R) or CVA tenderness (L) Neurological Exam Neurological exam: Present alert, oriented X3, CN II-XII intact, normal gait and reflexes normal; Absent motor sensory deficit Psychiatric Psychiatric exam: Present normal affect and normal mood Skin Skin exam: Present warm, dry, intact and normal color Lymphatic Lymphatic Findings: no adenopathy Medical Decision Making Medical Records Medical records reviewed: No I reviewed the patient's medical records. Screening: Per USPSTF and CDC recommendations, given the prevalence of disease in our region, it is our hospital?s policy to screen for HIV and viral Hepatitis for all patients aged 18 and over and those with ongoing risk factors. Manuel Inquiry Pt receiving controlled substance: No Vital Signs: 06/05/24 11:53 Temperature 99.0 F Temperature Source Oral Pulse Rate [Left Brachial] 74 Respiratory Rate 20 Blood Pressure [Left Arm] 114/55 L Blood Pressure Mean [Left Arm] 74 02 Sat by Pulse Oximetry 96 Lab Data Lab results reviewed: Yes I reviewed the patient's lab results. Lab Results 06/05/24 11:51: Influenza Type A Ag Negative, Influenza Type B Ag Negative
[2024-06-05 12:23] VITALS: BP 114/55; PULSE 74; RESP 20; TEMP 37.2
== END 2024-06-05 12:27 | disposition home or self-care (01) ==
PROVIDERS: Emergency Provider Nurse Practitioner Family; PCP Physician Assistant
DX: J02.9 Acute pharyngitis, unspecified (principal); H66.91 Otitis media, unspecified, right ear; M79.10 Myalgia, unspecified site; R05.9 Cough, unspecified; H92.01 Otalgia, right ear; R11.0 Nausea
CPT/HCPCS: 87635; 87804; 99212; G0381

== ENCOUNTER 2024-08-11 08:20 | Emergency (ER) | payer BC, SELFPAY ==
--- NOTE | 2024-08-11 08:41 | EXP.UTC ---
Discharge Plan Disposition Patient Disposition: Home, Self-Care Condition: Good Prescriptions Prescriptions: No Action bisoprolol fumarate 5 mg tablet 2.5 mg PO DAILY Qty: 90 1RF hydroxychloroquine 200 mg tablet 200 mg PO DAILY Patient Comments: TAKE 1 TABLET BY MOUTH EVERY DAY dextroamphetamine-amphetamine 10 mg tablet 10 mg PO DAILY pwrpjfmritjippw-tdjeasynm-IN [Bromfed DM] 2-30-10 mg/5 mL Syrup 5 ml PO Q6H PRN (Reason: Cough) Qty: 240 0RF amoxicillin 875 mg tablet 875 mg PO Q12H Qty: 20 0RF methylprednisolone 4 mg Tablets,Dose Pack 4 mg PO DIRECTED 6 Days Qty: 21 0RF Rx Instructions: Take 1 pack as directed for 6 days ljzahydjjxkftjb-zvffwibqo-EM [Bromfed DM] 2-30-10 mg/5 mL Syrup 5 ml PO Q6H PRN (Reason: Cough) Qty: 240 0RF Referrals Follow up/Referrals: Adia Carlisle PA [Primary Care Provider] - See instructions Activity Restrictions/Add. Instructions Additional Instructions/Restrictions: *Monitor Temp, Over the counter Motrin or Tylenol as directed/as needed Tylenol every 4 hours and Motrin every 6 hours (as long as your family doctor has told you that you can take it) for fever or pain. and straight to ER if unable to lower temp less than 101.0 after medication given *Warm salt water gargles may help to soothe the throat *Throat Lozenges? *Warm fluids like tea with honey may help to soothe the throat? *Sleep elevated *Humidifier/Vaporizer *Flonase 2 sprays in each nostril daily but be aware that it may take 2-3 days before you notice improvement *Bromfed may cause drowsiness. Know how it effects you (your child) before driving, caring for small child, or sending your child to school. Not other antihistamines/allergy medications while taking bromfed Your throat swab was sent for culture. Those results are typically sent to your primary care. Be sure to follow up in 2-3 days with your family doctor/primary care physician if no improvement so they can review those result and treat if necessary. If you don?t have a primary care doctor, I recommend you get one but in the mean time, you will have to return to a walk in clinic Follow up IMMEDIATELY for new or worsening symptoms or no Noticeable improvement over the next 48-72 hours. 911 for difficulty breathing or swallowing Clinical Impressions Clinical Impression: Acute viral syndrome Instructions Patient Instructions: Sore Throat, DI for Fever (Symptom) -- Adult Print Language Print Language: Syriac Discharge ED Provider: Laura Sommer [facility] [place] H[place] General Stated complaint: fever body aches chills sore throat Time Seen by Provider: 08/11/24 08:41 History of Present Illness Provider Complaint: Patient states that she has been having chills, fever, sore throat and body aches States that she was worried that she may have flu, COVID or strep throat States that she was around someone recently that had COVID and feels odilon like it did when she had it before so today she came in wanting to get tested Related Data Home Medications ?Medication ?Instructions ?Recorded ?Confirmed hydroxychloroquine 200 mg tablet 200 mg PO DAILY Sjogrens 09/14/22 06/05/24 dextroamphetamine-amphetamine 10 10 mg PO DAILY 03/02/24 06/05/24 mg tablet Previous Rx's ?Medication ?Instructions ?Recorded lseqxscokveljfo-jqtsnmlwvuyoatf-XZ 5 ml PO Q6H PRN Cough #240 mL 03/02/24 2 mg-30 mg-10 mg/5 mL oral syrup (Bromfed DM) amoxicillin 875 mg tablet 875 mg PO Q12H #20 tabs 06/05/24 hphsdbcfzftblkd-nskgtmsxadjzbyn-VX 5 ml PO Q6H PRN Cough #240 mL 06/05/24 2 mg-30 mg-10 mg/5 mL oral syrup (Bromfed DM) methylprednisolone 4 mg tablets in 4 mg PO DIRECTED 6 days #21 tabs 06/05/24 a dose pack bisoprolol fumarate 5 mg tablet 2.5 mg (1/2 x 5 mg) PO DAILY #90 07/21/24 tabs Allergies Allergy/AdvReac Type Severity Reaction Status Date / Time No Known Allergies Allergy Verified 11/02/23 15:24 [facility] Disclaimer: The information contained in this section may have been updated after the patient was seen, as this information can be updated by other users. Medical History (Updated 08/11/24 @ 09:06 by Laura Sommer APRN) Urinary tract infection Sjogren syndrome Depression Anxiety Asthma Surgical History (Updated 03/02/24 @ 13:13 by Alison Ochoa RN) History of tonsillectomy Social History Smoking Status: Never smoker alcohol intake: current alcohol intake frequency: holidays/special occasions only substance use type: denies use current occupational status: employed Travel in the last 8 weeks: None household members: family housing: house Have you lived/traveled outside US in past 30 days?: No Contact w/someone who lives/traveled outside US past 30 days?: No Exposure to someone with infectious disease in past 14 days?: No Do you have a fever (greater than 100.4 F or 38 C)?: No Have you tested positive for COVID-19: No Exposed to someone with COVID-19 in past 14 days?: No Do you have a sore throat?: Yes Do you have a cough?: Yes Do you have any weakness?: No Do you have any diarrhea?: No Are you experiencing any unusual bleeding?: No Do you have any muscle aches/pain?: No Do you have any abdominal pain?: No Are you experiencing loss of taste or smell?: No ROS Obtained: Yes All systems reviewed & no additional complaints except as documented and Yes Systems reviewed as appropriate & no additional complaints except as documented Constitutional Constitutional: Reports system reviewed and no additional complaints, except as documented, Reports as per HPI, Reports body ache, Reports chills, Reports fever(s) and Reports headache(s) ENT Ears, Nose, Mouth, and Throat: Reports system reviewed and no additional complaints, except as documented, Reports as per HPI, Reports headache(s), Reports nasal congestion, Reports nasal discharge and Reports sore throat Cardiovascular Cardiovascular: Reports system reviewed and no additional complaints, except as documented and Reports as per HPI Respiratory Respiratory: Reports system reviewed and no additional complaints, except as documented, Reports as per HPI and Reports cough Gastrointestinal Gastrointestingal: Reports system reviewed and no additional complaints, except as documented and as per HPI Musculoskeletal Musculoskeletal: Reports system reviewed and no additional complaints, except as documented and Reports as per HPI Neurologic Neurologic: Reports headache(s) Physical Exam General General appearance: alert and in no apparent distress ENT ENT exam: Present mucous membranes moist Expanded ENT Exam Nose exam: Absent sinus tenderness Throat exam: Present other (mild pharyngeal erythema noted) Respiratory Respiratory exam: Present normal lung sounds bilaterally; Absent respiratory distress or wheezes Cardiovascular Cardiovascular exam: Present regular rate, normal rhythm and normal heart sounds Abdominal Exam Abdominal exam: Present soft and normal bowel sounds; Absent distention or tenderness Neurological Exam Neurological exam: Present alert, oriented X3 and normal gait Medical Decision Making Medical Records Screening: Per USPSTF and CDC recommendations, given the prevalence of disease in our region, it is our hospital?s policy to screen for HIV and viral Hepatitis for all patients aged 18 and over and those with ongoing risk factors. Manuel Inquiry Pt receiving controlled substance: No Manuel was queried for this patient: No Lab Data Lab results reviewed: Yes I reviewed the patient's lab results.
[2024-08-11 08:45] VITALS: BP 115/75; PULSE 89; RESP 18; TEMP 36.7; O2SAT 97; BMI 30.5
[2024-08-11 09:05] LABS: UTC Influenza A Antigen Negative (Negative); UTC Strep Screen (Rapid) Negative (Negative)
[2024-08-11 09:06] LABS: UTC Influenza B Antigen Negative (Negative)
[2024-08-11 09:07] VITALS: BP 115/75; PULSE 89; RESP 18; TEMP 36.7; O2SAT 97
== END 2024-08-11 09:13 | disposition home or self-care (01) ==
PROVIDERS: Emergency Provider Nurse Practitioner; PCP Physician Assistant
DX: B34.9 Viral infection, unspecified (principal); R50.9 Fever, unspecified; R51.9 Headache, unspecified; R09.81 Nasal congestion; M79.10 Myalgia, unspecified site; J02.9 Acute pharyngitis, unspecified; Z20.822 Contact with and (suspected) exposure to COVID-19
CPT/HCPCS: 87635; 87804; 87880; 99212; G0381

== ENCOUNTER 2024-08-24 13:53 | Emergency (ER) | payer BC, SELFPAY ==
[2024-08-24 14:06] VITALS: BP 117/83; PULSE 68; RESP 18; TEMP 36.9; O2SAT 98; BMI 30.5
--- NOTE | 2024-08-24 14:10 | EXP.UTC ---
Discharge Plan Disposition Patient Disposition: Home, Self-Care Condition: Good Prescriptions Prescriptions: New amoxicillin 500 mg capsule 500 mg PO BID 10 Days Qty: 20 0RF No Action bisoprolol fumarate 5 mg tablet 2.5 mg PO DAILY Qty: 90 1RF hydroxychloroquine 200 mg tablet 200 mg PO DAILY Patient Comments: TAKE 1 TABLET BY MOUTH EVERY DAY dextroamphetamine-amphetamine 10 mg tablet 10 mg PO DAILY cetirizine [Zyrtec] 10 mg Tablet 10 mg PO DAILY Referrals Follow up/Referrals: Adia Carlisle PA [Primary Care Provider] - See instructions Activity Restrictions/Add. Instructions Additional Instructions/Restrictions: *Monitor Temp, Over the counter Motrin or Tylenol as directed/as needed Tylenol every 4 hours and Motrin every 6 hours (as long as your family doctor has told you that you can take it) for fever or pain. and straight to ER if unable to lower temp less than 101.0 after medication given *Warm salt water gargles may help to soothe the throat *Throat Lozenges? *Warm fluids like tea with honey may help to soothe the throat? *Sleep elevated *Humidifier/Vaporizer Your throat swab was sent for culture. Those results are typically sent to your primary care. Be sure to follow up in 2-3 days with your family doctor/primary care physician if no improvement so they can review those result and treat if necessary. If you don?t have a primary care doctor, I recommend you get one but in the mean time, you will have to return to a walk in clinic Follow up IMMEDIATELY for new or worsening symptoms or no Noticeable improvement over the next 48-72 hours. 911 for difficulty breathing or swallowing Clinical Impressions Clinical Impression: Pharyngitis Instructions Patient Instructions: Sore Throat, Amoxicillin Print Language Print Language: Cymraes Discharge ED Provider: Laura Sommer [facility] [place] HPI General Stated complaint: sore throat, fever Mode of Arrival: Ambulatory Source of Information: Patient Limitations: No Limitations Time Seen by Provider: 08/24/24 14:10 Description of Symptoms (Recalled from Triage Doc. by RN): PATIENT C/O SORE THROAT SINCE YESTERDAY HEENT Symptoms (Recalled from RN notes): Yes Resp Symptoms (Recalled from RN notes): No Skin Symptoms (Recalled from RN notes): No MS Symptoms (Recalled from RN notes): No Functional Status (Recalled from RN notes): WNL History of Present Illness Provider Complaint: Patient states that she started feeling bad yesterday with sore throat States that she feels like she may have strep throat so she came in to get checked Related Data Home Medications ?Medication ?Instructions ?Recorded ?Confirmed hydroxychloroquine 200 mg tablet 200 mg PO DAILY Sjogrens 09/14/22 08/24/24 dextroamphetamine-amphetamine 10 10 mg PO DAILY 03/02/24 08/24/24 mg tablet cetirizine 10 mg tablet (Zyrtec) 10 mg PO DAILY 08/24/24 08/24/24 Previous Rx's ?Medication ?Instructions ?Recorded bisoprolol fumarate 5 mg tablet 2.5 mg (1/2 x 5 mg) PO DAILY #90 07/21/24 tabs amoxicillin 500 mg capsule 500 mg PO BID 10 days #20 caps 08/24/24 Allergies Allergy/AdvReac Type Severity Reaction Status Date / Time No Known Allergies Allergy Verified 11/02/23 15:24 Worker's Comp Is this a Worker's Comp case?: No [facility] Disclaimer: The information contained in this section may have been updated after the patient was seen, as this information can be updated by other users. Medical History (Updated 08/24/24 @ 14:19 by Laura Sommer APRN) Urinary tract infection Sjogren syndrome Depression Anxiety Asthma Surgical History (Updated 03/02/24 @ 13:13 by Alison Ochoa RN) History of tonsillectomy Social History Smoking Status: Never smoker alcohol intake: current alcohol intake frequency: holidays/special occasions only substance use type: denies use current occupational status: employed Travel in the last 8 weeks: None household members: family housing: house Have you lived/traveled outside US in past 30 days?: No Contact w/someone who lives/traveled outside US past 30 days?: No Exposure to someone with infectious disease in past 14 days?: No Do you have a fever (greater than 100.4 F or 38 C)?: Yes Have you tested positive for COVID-19: No Exposed to someone with COVID-19 in past 14 days?: No Do you have a sore throat?: Yes Do you have a cough?: No Do you have any weakness?: No Do you have any diarrhea?: No Are you experiencing any unusual bleeding?: No Do you have any muscle aches/pain?: No Do you have any abdominal pain?: No Are you experiencing loss of taste or smell?: No ROS Obtained: Yes All systems reviewed & no additional complaints except as documented and Yes Systems reviewed as appropriate & no additional complaints except as documented Constitutional Constitutional: Reports system reviewed and no additional complaints, except as documented and Reports as per HPI Eyes Eyes: Reports system reviewed and no additional complaints, except as documented and Reports as per HPI ENT Ears, Nose, Mouth, and Throat: Reports system reviewed and no additional complaints, except as documented, Reports as per HPI and Reports sore throat Cardiovascular Cardiovascular: Reports system reviewed and no additional complaints, except as documented and Reports as per HPI Respiratory Respiratory: Reports system reviewed and no additional complaints, except as documented and Reports as per HPI Physical Exam General General appearance: alert and in no apparent distress ENT ENT exam: Present mucous membranes moist Expanded ENT Exam Throat exam: Present other (Pharyngeal erythema noted with PND) Respiratory Respiratory exam: Present normal lung sounds bilaterally; Absent respiratory distress or wheezes Cardiovascular Cardiovascular exam: Present regular rate, normal rhythm and normal heart sounds Abdominal Exam Abdominal exam: Present soft and normal bowel sounds; Absent distention or tenderness Neurological Exam Neurological exam: Present alert, oriented X3 and normal gait Medical Decision Making Medical Records Screening: Per USPSTF and CDC recommendations, given the prevalence of disease in our region, it is our hospital?s policy to screen for HIV and viral Hepatitis for all patients aged 18 and over and those with ongoing risk factors. Manuel Inquiry Pt receiving controlled substance: No Manuel was queried for this patient: No Vital Signs: 08/24/24 14:06 Temperature 98.4 F Temperature Source Oral Pulse Rate [Left Brachial] 68 Respiratory Rate 18 Blood Pressure [Left Arm] 117/83 Blood Pressure Mean [Left Arm] 94 Blood Pressure Source [Left Arm] Automatic Cuff Blood Pressure Position [Left Arm] Sitting 02 Sat by Pulse Oximetry 98 Oxygen Delivery Method Room Air Lab Data Lab results reviewed: Yes I reviewed the patient's lab results.
[2024-08-24 14:17] LABS: UTC Strep Screen (Rapid) Negative (Negative)
[2024-08-24 14:21] VITALS: BP 117/83; PULSE 68; RESP 18; TEMP 36.9; O2SAT 98
== END 2024-08-24 14:23 | disposition home or self-care (01) ==
PROVIDERS: Emergency Provider Nurse Practitioner; PCP Physician Assistant
DX: J02.9 Acute pharyngitis, unspecified (principal)
CPT/HCPCS: 87880; 99213; G0381

== ENCOUNTER 2025-01-26 17:57 | Outpatient (CLI) | payer BC, SELFPAY ==
--- OUTSIDE RECORDS SUMMARY | 2024-05-13 05:45 | XMS_ITS ---
Author Organization [facility] Address [address] [place] [id number] Care Team Providers Care Fiber Machine Tender Name Role Phone Kathya Messer Primary Care Provider Adia Carlisle Unavailable [phone] Allergies No Known Allergies Results Component Value Reference Range Notes CBC Venipuncture (in house) Reviewed date:05/13/2024 12:29:53 PM Interpretation: Performing Lab: Notes/Report: wbc 4.7 3.5 - 10 lymph 37.9% 15 - 50 mid 5.2% 2 - 15 gran 56.9% 35 - 80 rbc 4.81 3.5 - 5.5 hgb 14.1 11.5 - 16.5 hct 41.7 35 - 55 mcv 86.6 75 - 100 mch 29.3 25 - 35 mchc 33.9 31 - 38 platlet 273 100 - 400 P-Vitamin B12 Reviewed date:05/17/2024 10:42:51 AM Interpretation:Normal Performing Lab: Notes/Report: Test performed by [facility] [address] [place] [address] Jerome Francisco, [address], [place] [address] Eyal Marcus MD, Drafter Mechanical CLIA: [id number] Vitamin B12 545 570-1902 pg/mL P-Comprehensive Metabolic Pa yaw (CMP) Reviewed date:05/17/2024 10:42:51 AM Interpretation:Normal Performing Lab: Notes/Report: Test performed by [facility] [address] [place] [address] Jerome Francisco, [address], [place] [address] Eyal Marcus MD, Drafter [employer] CLIA: [id number] Sodium 143 135-145 mmol/L Potassium 4.0 3.5-5.3 mmol/L Chloride 103 97-108 mmol/L CO2 25 22-32 mmol/L Glucose 67 65-99 mg/dL BUN 7 6-20 mg/dL Creatinine 0.84 0.50-1.00 mg/dL Calcium 9.5 8.6-10.4 mg/dL eGFR by Creatinine 97 >59 mL/min/1.73m2 Protein 7.1 6.0-8.3 g/dL Albumin 4.6 3.5-5.3 g/dL Alkaline Phosphatase 60 35-121 IU/L ALT (SGPT) 19 <5-47 IU/L AST (SGOT) 25 <5-40 IU/L Bilirubin, Total 0.5 <0.2-1.2 mg/dL A/G Ratio 1.8 1.1-2.5 P-CPK Reviewed date:05/17/2024 10:42:51 AM Interpretation:Normal Performing Lab: Notes/Report: Test performed by [facility] [address] , [place] [address] Eyal Marcus MD, Drafter Mechanical CLIA: [id number] Creatine Kinase 177 20-180 U/L P-T4 Free (thyroxine) Reviewed date:05/17/2024 10:42:51 AM Interpretation:Normal Performing Lab: Notes/Report: Test performed by [facility] [address] , [facility] [place] [address] Eyal Marcus MD, Drafter Mechanical CLIA: [id number] Thyroxine Free (free T4) 1.18 0.86-1.76 ng/dL P-Magnesium Reviewed date:05/17/2024 10:42:51 AM Interpretation:Normal Performing Lab: Notes/Report: Test performed by [facility] [address] [place] [address] , [address], [place] [address] Eyal Marcus MD, Drafter Mechanical CLIA: [id number] Magnesium 1.9 1.6-2.4 mg/dL P-Thyroid Antibody Panel (TA BS) Reviewed date:05/17/2024 10:42:51 AM Interpretation:Normal Performing Lab: Notes/Report: Test performed by [facility] [address] [place] [address] , [facility], [place] [address] Eyal Marcus MD, Drafter Mechanical CLIA: [id number] Thyroid Peroxidase Antibody 13 <9-34 IU/mL An elevated Thyroid Peroxidase Antibody should not be used alone to make the diagnosis of autoimmune thyroid disease. A result of <34 IU/mL does not definitively rule out the possibility of autoimmune thyroid disease. Thyroglobulin Antibody 15.2 <10-115.0 IU/mL The test is performed by the N[employer] ECLIA methodology. Values obtained with different assay methods or kits cannot be directly compared. P-TSH Reviewed date:05/17/2024 10:42:51 AM Interpretation:Normal Performing Lab: Notes/Report: Test performed by [facility] [address] [place] [address] [place] [address] Eyal Marcus MD, Drafter Mechanical CLIA: [id number] TSH 1.72 0.43-5.25 mU/L P-Vitamin D 25-Hydroxy Reviewed date:05/17/2024 10:42:51 AM Interpretation:27.4 Performing Lab: Notes/Report: Test performed by [facility] [address] [place] [address] [place] [address] Eyal Marcus MD, Drafter Mechanical CLIA: [id number] Vitamin D 25-Hydroxy 27.4 30.0-100.0 ng/mL Interpretation of Vitamin D 25 OH: < 20 ng/mL - Deficiency 20 - 29 ng/mL - Insufficiency 30 - 100 ng/mL - Sufficiency > 100 ng/mL - Super-therapeutic- toxicity may occur above this level. Clinical correlation required. REASON FOR VISIT discuss exhaustion Medications Medication SIG (Take, Route, Frequency, Duration) Notes Start Date End Date Status Triamcinolone Acetonide 0.1 % 1 applicat ion Externally three times a day as needed 02/11/2024 Active Multivitamin - 1 tablet Orally Once a day for 30 day(s) Active Bisoprolol Fumarate 5 MG 1 tablet Orally Once a day for 30 day(s) Active Adderall 5 MG 1 tab(s) Orally Twic e a day Active Hydroxychloroquine Sulfate 2 00 MG 1 tab(s) orally once a day for 30 day(s) Active Vitamin D 25 MCG (1000 UT) 1 tablet Oral ly Once a day for 30 day(s) Active Problems Problem Type SNOMED Code ICD Code Onset Dates Problem Status W/U Status Risk Notes Problem 27713516 Vitamin D deficiency (E55.9) Active confirmed Vital Signs Blood pressure systolic 118 mm Hg 05/13/20 24 Blood pressure diastolic 72 mm Hg 024 Heart Rate 76 /min 05/13/2024 Height 68.50 in 05/13/2024 Weight 211.8 lbs 05/13/2024 BMI 31.73 kg/m2 05/13/2024 Encounters Encounter Location Date Provider Diagnosis [facility] [address] [place] [id number] 05/13/2024 Adia Carlisle Other fatigue R53.83 ; Vitamin D deficiency E55.9 ; Vitamin B12 deficiency E53.8 and Myalgia M79.10 Assessments Encounter Date Diagnosis (ICD Code) Assessment Notes Treatment Notes Treatment Clinical Notes Section Notes 05/13/2024 Other fatigue (ICD-10 - R53.83) 05/13/2024 Vitamin D deficiency (ICD-10 - E55.9) 05/13/2024 Vitamin B12 deficiency (ICD-10 - E53.8) 05/13/2024 Myalgia (ICD-10 - M79.10) Plan Of Treatment Next Appt Details Follow Up: via phone to repo rt test results, Reason: Progress Notes * Myrna WILCOXDOB:[birth year] (29 yo F)Acc No.[id number]:05/13/2024 Progress Notes Patient: Susan NOEMyrna SEXTON Provider: EDIS Dowling :1995 A ge:29 Y S ex:Female Date:05/13/2024 Address:[address] [place] [address] [place] [id number] Pcp:Kathya Messer Subjective: * Chief Complaints: * 1 . Discuss exhaustion. * HPI: E ndocrinology: 29 year old female presents with c/o Fatigue P t complains of ongoing exhaustion . States she has been taking 2,000 IU Vitamin daily and has not had any improvement. Pt states she is always tired and would like more labs drawn. * ROS: D ERMATOLOGY: no R kenia. n o H yoselin. G ASTROENTEROLOGY: no N ausea. n o V omiting. U ROLOGY: no D ifficulty urinating. n o B lood in urine. * Medical History: S jogrens syndrome, with unspecified organ involvement. * Surgical History: T onsilectomy 07/2005. * Hospitalization/Major Diagno stic Procedure: D enies Past Hospitalization. * Family History: F ather: alive. M other: alive. P aternal Grand Father: alive, stroke. P aternal Grand Mother: alive. M aternal Grand Father: alive. M aternal Grand Mother: alive. * Social History: C URRENT TOBACCO USE S moking Status: Patient does NOT smoke. C affeine: no. Exercise: yes. Home smoke detector use: yes. Marital Status: Single. New since last visit: none. Past smoking status: no, Smoking status: Does not smoke. Occup. exposure: none. Recreational drug use: no. Alcohol: no. Travel ouside [place]: no. * Medications: T aking Vitamin D 25 MCG (1000 UT) Tablet 1 tablet Orally Once a day , Taking Multivitamin - Tablet 1 tablet Orally Once a day , Taking Bisoprolol Fumarate 5 MG Tablet 1 tablet Orally Once a day , Taking Adderall 5 MG Tablet 1 tab(s) Orally Twice a day , Taking Hydroxychloroquine Sulfate 200 MG Tablet 1 tab(s) orally once a day , Taking Triamcinolone Acetonide 0.1 % Cream 1 application Externally three times a day as needed , Medication List reviewed and reconciled with the patient * Allergies: N .K.D.A. Objective: * Vitals: W t:211.8, Temp:97.8, BP:118/72, HR:76, Nurse:tabby, Ht: 68.50, BMI:31.73. * Examination: G eneral Examination: General Appearance: N AD. HEENT: u nremarkable. Oral cavity: n o lesions, mucosa moist and WNL, no erythema. Neck: s upple, no lymphadenopathy. Chest: n ormal shape and expansion. Heart: R SR. Lungs: c lear to auscultation. Abdomen: bowel sounds present, soft and nontender, no organomegaly or masses, no guarding or rigidity. Neurologic Exam: I ntact, gait normal. Skin: n ormal, no rash. Peripheral pulses: n ormal (2+) bilaterally. Extremities: n o leg edema. Assessment: * Assessment: 1. O ther fatigue - R53.83 (Primary) 2 . V itamin D deficiency - E55.9 3 . V itamin B12 deficiency - E53.8 4 . M yalgia - M79.10 ? Plan: * Treatment: Value Reference Range A /G Ratio 1.8 1.1-2.5 - * A lbumin 4.6 3.5-5.3 - g/dL * A lkaline Phosphatase 60 35-121 - IU/L * A LT (SGPT) 19 <5-47 - IU/L * A ST (SGOT) 25 <5-40 - IU/L * B ilirubin, Total 0.5 <0.2-1.2 - mg/dL * B UN 7 6-20 - mg/dL * C alcium 9.5 8.6-10.4 - mg/dL * C hloride 103 97-108 - mmol/L * C O2 25 22-32 - mmol/L * C reatinine 0.84 0.50-1.00 - mg/dL * G lucose 67 65-99 - mg/dL * P otassium 4.0 3.5-5.3 - mmol/L * S odium 143 135-145 - mmol/L * P rotein 7.1 6.0-8.3 - g/dL * e GFR by Creatinine 97 >59 - mL/min/1.73m2 * Adia Carlisle 05/17/2024 10 :42:40 AM > see TE ?LAB: P-T4 Free (thyroxine) (Collection Date & Time - 05/13/2024 09:10 AM)? Normal* Value Reference Range T hyroxine Free (free T4) 1.18 0.86-1.76 - ng/d L * Adia Carlisle 05/17/2024 10 :42:40 AM > see TE ?LAB: P-Thyroid Antibody Panel (TABS) (Collection Date & Time - 05/13/2024 09:10 AM)?Normal* Value Reference Range T hyroid Peroxidase Antibody 13 <9-34 - IU/mL * T hyroglobulin Antibody 15.2 <10-115.0 - IU/mL * Adia Carlisle 05/17/2024 10 :42:40 AM > see TE ?LAB: P-TSH (Collection Date & Time - 05/13/2024 09:10 AM)?Normal* Value Reference Range T SH 1.72 0.43-5.25 - mU/L * Adia Carlisle 05/17/2024 10 :42:40 AM > see TE ?LAB: CBC Venipuncture (in house) (Collection Date & Time - 05/13/2024)* Value Reference Range w bc 4.7 3.5 - 10 * l ymph 37.9% 15 - 50 * m id 5.2% 2 - 15 * g ran 56.9% 35 - 80 * r bc 4.81 3.5 - 5.5 * h gb 14.1 11.5 - 16.5 * h ct 41.7 35 - 55 * m cv 86.6 75 - 100 * m ch 29.3 25 - 35 * m chc 33.9 31 - 38 * p latlet 273 100 - 400 * Sumaya Leal 05/13/2024 10:20:1 1 AM >Adia Carlisle 05/13/2024 12:29:50 PM > 2.?Vitamin D deficiency?LAB: P-Vitamin D 25-Hydroxy (Collection Date & Time - 05/13/2024 09:10 AM)? 27.4* Value Reference Range V itamin D 25-Hydroxy 27.4 L 30.0-100.0 - ng/mL * Adia Carlisle 05/17/2024 10 :42:40 AM > see TE 3.?Vitamin B12 deficiency?LAB: P-Vitamin B12 (Collection Date & Time - 05/13/2024 09:10 AM)?Normal* Value Reference Range V itamin B12 150 908-8959 - pg/mL * Adia Carlisle 05/17/2024 10 :42:40 AM > see TE 4.?Myalgia?LAB: P-CPK (Collection Date & Time - 05/13/2024 09:10 AM)?Normal* Value Reference Range C reatine Kinase 177 20-180 - U/L * Adia Carlisle 05/17/2024 10 :42:40 AM > see TE ?LAB: P-Magnesium (Collection Date & Time - 05/13/2024 09:10 AM)?Normal* Value Reference Range M agnesium 1.9 1.6-2.4 - mg/dL * Adia Carlisle 05/17/2024 10 :42:40 AM > see TE * Procedure Codes: 8 5025 CBC WITH AUTO DIFF, 85709 VENIPUNCT, ROUTINE* * Follow Up: v ia phone to report test results * Billing Information: * Visit Code: 72372 Office Visit, Est Pt., Level 4. * Procedure Codes: 99227 CBC WITH AUTO DIFF. 80506 VENIPUNCT, ROUTINE*. * Electronic signature of EDIS Crandall on 01/27/2025 at 11:35 PM EDT Sign off status: Pending * Provider: EDIS Dowling Date: 0 05/13/2024 Generated for Printi ng/Faxing/eTransmitting on: 0 01/27/2025 11:35 PM EDT History and Physical Notes * HPI (History of Present Illness) Category Sub-Category Detail Notes Category Not es Endocrinology Fatigue Pt complains of ongoing exhaustion . States she has been taking 2,000 IU Vitamin daily and has not had any improvement. Pt states she is always tired and would like more labs drawn Examination Category Sub-Category Detail Notes Category Not es General Examination HEENT: unremarkable Heart: RSR Lungs: clear to auscultatio n Abdomen: bowel sounds present , soft and nontender, no organomegaly or masses, no guarding or rigidity Extremities: no leg edema General Appearance: NAD Skin: normal, no rash Neurologic Exam: Intact, gait normal Neck: supple, no lymphaden opathy Oral cavity: no lesions, mucosa m oist and WNL, no erythema Peripheral pulses: normal (2+) bilatera lly Chest: normal shape and exp ansion
--- OUTSIDE RECORDS SUMMARY | 2024-07-20 06:15 | XMS_ITS ---
Author Organization [facility] Address [address] [facility] [address] [place] [id number] Care Team Providers Care Cryptozoologist Name Role Phone Kathya Messer Primary Care Provider [phone] Adia Carlisle Unavailable [phone] Allergies No Known Allergies REASON FOR VISIT ear infection Medications Medication SIG (Take, Route, Frequency, Duration) Notes Start Date End Date Status Adderall 5 MG 1 tab(s) Orally Twic e a day Active Hydroxychloroquine Sulfate 2 00 MG 1 tab(s) orally once a day for 30 day(s) Active Multivitamin - 1 tablet Orally Once a day for 30 day(s) Active Bisoprolol Fumarate 5 MG 1 tablet Orally Once a day for 30 day(s) Active Vitamin D 25 MCG (1000 UT) 1 tablet Oral ly Once a day for 30 day(s) Active Vital Signs Blood pressure systolic 118 mm Hg 07/20/20 24 Blood pressure diastolic 80 mm Hg 024 Heart Rate 95 /min 07/20/2024 Height 68.50 in 07/20/2024 Weight 209.6 lbs 07/20/2024 BMI 31.40 kg/m2 07/20/2024 Encounters Encounter Location Date Provider Diagnosis [facility] [address] [place] [id number] 07/20/2024 Adia Carlisle Non-recurrent acute serous otitis media of both ears H65.03 Assessments Encounter Date Diagnosis (ICD Code) Assessment Notes Treatment Notes Treatment Clinical Notes Section Notes 07/20/2024 Non-recurrent acute serous otitis media of both ears (ICD-10 - H65.03) Will continue loratadine and start on flonase. If no improvement, will start on steroids. Plan Of Treatment Treatment Notes Assessment Notes Non-recurrent acute serous o titis media of both ears Will continue loratadine and start on flonase. If no improvement, will start on steroids. Next Appt Details Follow Up: prn, Reason: Progress Notes * Myrna WILCOXDOB:[birth year] (29 yo F)Acc No.[id number]:07/20/2024 Progress Notes Patient: Myrna AREVALO Provider: EDIS Dowling :1995 A ge:29 Y S ex:Female Date:07/20/2024 Address:[address] [place] [address] [facility] [id number] Pcp:Kathya Messer Subjective: * Chief Complaints: * 1 . Ear infection. * HPI: E NT/respiratory: 29 year old female presents with c/o ear pain P t presents today with c/o bilateral ear pain. Pt sts that she had COVID in May and had an ear infection in the left ear. Pt sts that she has never stopped having ear pain since then. Pt sts that it is painful to use ear buds or ear plugs. * ROS: D ERMATOLOGY: no R kenia. n o H yoselin. G ASTROENTEROLOGY: no N ausea. n o V omiting. U ROLOGY: no D ifficulty urinating. n o B lood in urine. * Medical History: S jogrens syndrome, with unspecified organ involvement. * Surgical History: T onsilectomy 07/2005. * Family History: F ather: alive. M [...] 1 tab(s) orally once a day , Discontinued Triamcinolone Acetonide 0.1 % Cream 1 application Externally three times a day as needed , Medication List reviewed and reconciled with the patient * Allergies: N .K.D.A. Objective: * Vitals: W t:209.6, Temp:97.5, BP:118/80, HR:95, Nurse:SUE, Ht: 68.50, BMI:31.40. * Examination: E NT/Respiratory: General Appearance: N AD. Ears: auditory canals normal bilaterally, serous effusion bilaterally, no erythema. Nose : n ormal, no lesions, nares patent. Sinuses : non tender bilaterally. Oral cavity : n o erythema or exudate seen on pharynx. Neck : n o cervical lymphadenopathy. Heart : R RR, normal S1 S2, no murmurs. Lungs: c lear to auscultation bilaterally. Assessment: * Assessment: 1. N on-recurrent acute serous otitis media of both ears - H65.03 (Primary) Plan: * Treatment: * Follow Up: p rn * Billing Information: * Visit Code: 32948 Office Visit, Est Pt., Level 3. * Procedure Codes: * Electronic signature of EDIS Crandall on 01/27/2025 at 11:35 PM EDT Sign off status: Pending * Provider: EDIS Dowling Date: 1 09/20/2023 Generated for Kapil short/Arlyn/Marilyn on: 0 01/27/2025 11:35 PM EDT History and Physical Notes * HPI (History of Present Illness) Category Sub-Category Detail Notes Category Not es ENT/respiratory ear pain Pt presents toda y with c/o bilateral ear pain. Pt sts that she had COVID in May and had an ear infection in the left ear. Pt sts that she has never stopped having ear pain since then. Pt sts that it is painful to use ear buds or ear plugs Examination Category Sub-Category Detail Notes Category Not es ENT/Respiratory Oral cavity : no erythema or exudate s een on pharynx Sinuses : non tender bilateral ly Ears: auditory canals norm al bilaterally, serous effusion bilaterally, no erythema Neck : no cervical lymphade nopathy Heart : RRR, normal S1 S2, n o murmurs Lungs: clear to auscultatio n bilaterally General Appearance: NAD Nose : normal, no lesions, nares patent
--- OUTSIDE RECORDS SUMMARY | 2025-01-27 23:36 | XMS_ITS | Patient Health Record ---
Author Organization [facility] Address [address] [place] [id number] Care Team Providers Care Desk Attendant Name Role Phone Kathya Messer Primary Care Provider [phone] Adia aCrlisle Unavailable [phone] Allergies No Known Allergies Results Component Value [...] Interpretation:Normal Performing Lab: Notes/Report: Test performed by [facility] [address] [place], [place] [address] , [place] [address] Eyal Marcus MD, Securities Attorney CLIA: [id number] Vitamin B12 703 448-7480 pg/mL P-Comprehensive Metabolic Pa yaw (CMP) Reviewed date:05/17/2024 10:42:51 AM Interpretation:Normal Performing Lab: Notes/Report: Test performed by [facility] [address] [place], [place] [address] [place], [place] [address] Eyal Marcus MD, Securities Attorney CLIA: [id number] Sodium 143 135-145 mmol/L Potassium 4.0 3.5-5.3 [...] Interpretation:Normal Performing Lab: Notes/Report: Test performed by [facility] [address] [place] [address] , [facility] [place] [address] Eyal Marcus MD, Securities Attorney CLIA: [id number] Creatine Kinase 177 20-180 U/L P-T4 Free (thyroxine) Reviewed date:05/17/2024 10:42:51 AM Interpretation:Normal Performing Lab: Notes/Report: Test performed by [facility] [address] [place] [address] , [place] [address] Eyal Marcus MD, Securities Attorney CLIA: [id number] Thyroxine Free (free T4) 1.18 0.86-1.76 ng/dL P-Magnesium Reviewed date:05/17/2024 10:42:51 AM Interpretation:Normal Performing Lab: Notes/Report: Test performed by [facility] [address] [place] [address] , [facility] [address], [place] [address] Eyal Marcus MD, Securities Attorney CLIA: [id number] Magnesium 1.9 1.6-2.4 mg/dL P-Thyroid Antibody Panel (TA BS) Reviewed date:05/17/2024 10:42:51 AM Interpretation:Normal Performing Lab: Notes/Report: Test performed by [facility] [address] [place] [address] , [facility] [place] [address] Eyal Marcus MD, Securities Attorney CLIA: [id number] Thyroid Peroxidase Antibody 13 <9-34 IU/mL An [...] Interpretation:Normal Performing Lab: Notes/Report: Test performed by [facility] [address] [place] [address] , [place] [address] Eyal Marcus MD, Securities Attorney CLIA: [id number] TSH 1.72 0.43-5.25 mU/L P-Vitamin D 25-Hydroxy Reviewed date:05/17/2024 10:42:51 AM Interpretation:27.4 Performing Lab: Notes/Report: Test performed by [facility] [address] [place] [address] , [place] [address] Eyal Marcus MD, Securities Attorney CLIA: [id number] Vitamin D 25-Hydroxy 27.4 30.0-100.0 ng/mL Interpretation of Vitamin D 25 OH: < 20 ng/mL - Deficiency 20 - 29 ng/mL - Insufficiency 30 - 100 ng/mL - Sufficiency > 100 ng/mL - Super-therapeutic- toxicity may occur above this level. Clinical correlation required. CBC Venipuncture (in house) Reviewed date:02/11/2024 04:29:28 PM Interpretation: Performing Lab: Notes/Report: wbc 5.2 3.5 - 10 lymph 41.7 15 - 50 mid 7.3 2 - 15 gran 51.0 35 - 80 rbc 5.00 3.5 - 5.5 hgb 14.7 11.5 - 16.5 hct 43.0 35 - 55 mcv 86.0 75 - 100 mch 29.4 25 - 35 mchc 34.2 31 - 38 platlet 295 100 - 400 P-Vitamin B12 Reviewed date:02/17/2024 11:11:20 AM Interpretation:Normal Performing Lab: Notes/Report: Test performed by [facility] [address] [place] [address] , [address], [place] [address] Eyal Marcus MD, Securities Attorney CLIA: [id number] Vitamin B12 707 395-4797 pg/mL P-Comprehensive Metabolic Pa yaw (CMP) Reviewed date:02/17/2024 11:11:20 AM Interpretation:Normal Performing Lab: Notes/Report: Test performed by [facility] [address] [place] [address] , [address], [place] [address] Eyal Marcus MD, Securities Attorney CLIA: [id number] Sodium 140 135-145 mmol/L Potassium 4.4 3.5-5.3 mmol/L Chloride 103 97-108 mmol/L CO2 25 22-32 mmol/L Glucose 84 65-99 mg/dL BUN 10 6-20 mg/dL Creatinine 0.82 0.50-1.00 mg/dL Calcium 9.6 8.6-10.4 mg/dL eGFR by Creatinine 100 >59 mL/min/1.73m2 Protein 7.2 6.0-8.3 g/dL Albumin 4.7 3.5-5.3 g/dL Alkaline Phosphatase 63 35-121 IU/L ALT (SGPT) 18 <5-47 IU/L AST (SGOT) 23 <5-40 IU/L Bilirubin, Total 0.5 <0.2-1.2 mg/dL A/G Ratio 1.9 1.1-2.5 mg/dL P-TSH reflex to FT4 Reviewed date:02/17/2024 11:11:20 AM Interpretation:Normal Performing Lab: Notes/Report: Test performed by [facility] [address] [place] [address] , [address], [place] [address] Eyal Marcus MD, Securities Attorney CLIA: [id number] TSH reflex to FT4 1.50 0.43-5.25 mU/L P-Vitamin D 25-Hydroxy Reviewed date:02/17/2024 11:11:20 AM Interpretation:20.5 Performing Lab: Notes/Report: Test performed by [facility] [address] [place] [address] , [address], [place] [address] Eyal Marcus MD, Securities Attorney CLIA: [id number] Vitamin D 25-Hydroxy 20.5 30.0-100.0 ng/mL Interpretation of Vitamin D 25 OH: < 20 ng/mL - Deficiency 20 - 29 ng/mL - Insufficiency 30 - 100 ng/mL - Sufficiency > 100 ng/mL - Super-therapeutic- toxicity may occur above this level. Clinical correlation required. Medications Medication SIG (Take, Route, Frequency, Duration) Notes Start Date End Date Status Medrol 4 MG as directed orally daily for 6 days 07/29/2024 Active Adderall 5 MG 1 tab(s) Orally [...] Once a day for 30 day(s) Active Immunizations Vaccine Route Administration Date Status Comme nts COVID 19 Moderna Unknown 09/06/2020 Administered COVID 19 Moderna Unknown 10/05/2020 Administered COVID 19 Moderna Unknown 04/17/2021 Administered Gardasil 9 IM Intramuscular 08/06/2016 Administered MENINGOCOCCAL VACCINE, SC IM Intramuscular 01/04/2008 Admi nistered Tetanus Tdap-Adacel (over 7yrs) IM Intramuscular 01/04/2008 Administered Varivax SC Subcutaneous 02/20/2011 Administered Problems Problem Type SNOMED Code ICD Code Onset Dates Problem Status W/U Status Risk Notes Problem Exercise-induced bronchospasm (493.81) Active confirmed Problem 43324482 Vitamin D deficiency (E55.9) Active confirmed Problem 10513696 Irregular periods (N92.6) Active confirmed Problem 314261824 Exercise induced bronchospasm (J45.990) Active confirmed Problem 933303070 Seasonal allergic rhinitis, unspecified trigger (J30.2) Active confirmed Problem 21587681470197 Daytime hypersomnia (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) Active confirmed Problem 39419147 Bleeding after intercourse (N93.0) Active confirmed Vital Signs Heart Rate 95 /min 07/20/2024 Blood pressure diastolic 80 mm Hg 07/20/2024 Height 68.50 in 07/20/2024 Blood pressure systolic 118 mm Hg 07/20/2024 Weight 209.6 lbs 07/20/2024 BMI 31.40 kg/m2 07/20/2024 Encounters Encounter Location Date Provider Diagnosis [facility] [address] [place] [id number] 02/11/2024 Adia Carlisle Near syncope R55 ; O ther fatigue R53.83 and Lesion of skin of scalp L98.9 [facility] [address] [place] [id number] 05/13/2024 Adiastarla Carlisle Other fatigue R53.83 ; Vitamin D deficiency E55.9 ; Vitamin B12 deficiency E53.8 and Myalgia M79.10 [facility] [address] [place] [id number] 07/20/2024 Adia Carlisle Non-recurrent acute serous otitis media of both ears H65.03 [facility] [address] [place] [id number] 02/17/2024 Adia Crowdy [facility] [address] [place] [id number] 05/05/2024 Adiastarla Turner [address] [place] [id number] 05/17/2024 Adia Carlisle Daytime hypersomnia G47.10 [facility] [address] [place] [id number] 07/29/2024 Adia Carlisle Assessments Encounter Date Diagnosis (ICD Code) Assessment Notes Treatment Notes Treatment Clinical Notes Section Notes 02/11/2024 Near syncope (ICD-10 - R55) Will track BP, HR, and glucose when this happens to see if something is abnormal when she gets hot. 02/11/2024 Other fatigue (ICD-10 - R53.83) 05/13/2024 Vitamin D deficiency (ICD-10 - E55.9) 05/13/2024 Other fatigue (ICD-10 - R53.83) 05/17/2024 Daytime hypersomnia (ICD-10 - G47.10) 07/20/2024 Non-recurrent acute serous otitis media of both ears (ICD-10 - H65.03) Will continue loratadine and start on flonase. If no improvement, will start on steroids. 05/13/2024 Vitamin B12 deficiency (ICD-10 - E53.8) 02/11/2024 Lesion of skin of scalp (ICD-10 - L98.9) 05/13/2024 Myalgia (ICD-10 - M79.10) Plan Of Treatment Pending Test Test Name Order Date sleep study 05/17/2024 Insurance Providers Payer Name Payer Address Payer Phone Subscriber Number Group Number Insured Name Patient Relationship to Insured Coverage Start Date Coverage End Date [employer] [address] [place] [address] [phone] [id number] Myrna SAUL Self - patient is the insured Medications Administered Medication Instructions Date of Administration Dosage Notes Bicillin LA 1,200,000 05/16/2005 0.5 mL Bicillin LA 1,200,000 10/29/2006 Medical (General) History Medical History History ICD Code Sjogrens syndrome, with unspecified orga n involvement M35.00 Surgical History Surgery Date(Month/Year) Tonsilectomy 07/2005 Hospitalization History Reason Date(Month/Year)
== END 2025-01-26 23:59 | disposition home or self-care (01) ==
LOC: LAB.DROPOF 01-27 23:33
PROVIDERS: PCP Nurse Practitioner; Visit Provider Nurse Practitioner
DX: R35.0 Frequency of micturition (principal)
CPT/HCPCS: 87086; 87088; 87186